=== PATIENT | female | born 2000 | race Caucasian/White ===

== ENCOUNTER 2023-07-11 21:49 | Outpatient (REF) | payer OTHER, SELFPAY ==
[2023-07-19 00:06] LABS: Age Gdln ACOG Testing Note (.); HPV Aptima Positive (Negative); IGP, rfx Aptima HPV ASCU Note (.)
== END 2023-07-11 21:50 | disposition home or self-care (01) ==
LOC: LAB 21:49
PROVIDERS: Visit Provider Obstetrics & Gynecology
DX: Z12.4 Encounter for screening for malignant neoplasm of cervix (principal)
CPT/HCPCS: G0145

== ENCOUNTER 2024-03-07 19:59 | Outpatient (REF) | payer OTHER, SELFPAY | END 2024-03-07 20:00 | disposition home or self-care (01) | LOC: LAB 19:59 | PROVIDERS: Visit Provider Obstetrics & Gynecology | DX: R87.610 Atypical squamous cells of undetermined significance on cytologic smear of cervix (ASC-US) (principal) | CPT/HCPCS: 88175 ==

== ENCOUNTER 2025-05-14 12:11 | Outpatient (REF) | payer OTHER, SELFPAY ==
--- OUTSIDE RECORDS SUMMARY | 2025-05-14 10:00 | XMS_ITS | Encounter Summary ---
Author Organization [facility] Address [address] [facility] [place] [address] Care Team Providers Care Stock Sorter Name Role Phone Christianne Quezada MD Primary Care Provider [phone] Reason for Visit * Reason Comments Well Women Visit Encounter Details Date Type Department Care Team ([facility] st Contact Info) Description 05/14/2025 10:00 AM EDT Office Visit [facility] [address] [place] [id number] Catrina Bettencourt PA [address] [facility] [place] [address] Well woman exam with routine gynecological exam; Anxiety, generalized ; control counseling; Yeast infection; Rash Social History Tobacco Use Types Packs/Day Years Used Date Smoking Tobacco: Never Alcohol Use Standard Drinks/Week Comments Never 0 (1 standard drink = 0.6 oz pur e alcohol) caffeine: tea Comments No Sex and Gender Information Value Date Recorded Sex Assigned at Not on file Legal Sex Female 6:51 PM EDT Gender Identity Female 12/22/2022 6:51 PM EDT Sexual Orientation Not on file documented as of this encounter Last Filed Vital Signs Vital Sign Reading Time Taken Comments Blood Pressure 114/74 05/14/2025 10:37 AM EDT Pulse - - Temperature - - Respiratory Rate - - Oxygen Saturation - - Inhaled Oxygen Concentration - - Weight 63.2 kg (139 lb 6.4 oz) 05/14/2025 10:37 AM EDT Height - - Body Mass Index 23.93 03/07/2024 3:09 PM EDT documented in this encounter Plan of Treatment Upcoming Encounters Date Type Department Care Team (Late st Contact Info) Description 05/19/2026 10:00 AM EDT Procedure Visit [facility] [address] [place] [phone] Catrina Bettencourt PA [address] [facility] [place] [address] Scheduled Orders Name Type Priority Associated Diagnoses Orde r Schedule Pap Smear Pathology and Cytology Routine Well woman exam with routine gynecological exam Ordered: 05/14/2025 documented as of this encounter Visit Diagnoses Diagnosis Well woman exam with routine gynecological exam Routine gynecological examination Anxiety, generalized control counseling Yeast infection Rash Rash and other nonspecific skin eruption documented in this encounter Care Teams Stock Sorter Relationship Specialty Start Date End Date Christianne Quezada MD [address] [place] [address] PCP - General Family Medicine 02/15/23 documented as of this encounter
--- OUTSIDE RECORDS SUMMARY | 2025-05-14 12:16 | XMS_ITS | Encounter Summary ---
Author Organization [facility] Address [address] [place] [address] Care Team Providers Care Nailing Machine Operator Automatic Name Role Phone Christianne Quezada MD Primary Care Provider [phone] Encounter Details Date Type Department Care Team (Latest Contact Info) Description 05/14/2025 Travel Social History Tobacco Use Types Packs/Day Years [...] on file documented as of this encounter Plan of Treatment Upcoming Encounters Date Type Department Care Team (Late st Contact Info) Description 05/19/2026 10:00 AM EDT Procedure Visit [facility] [address] [facility] [place] [id number] Catrina Bettencourt PA [address] [facility] [address] [place], [facility] documented as of this encounter Visit Diagnoses Not on filedocumented in this encounter Care Teams Nailing Machine Operator Automatic Relationship Specialty Start Date End Date Christianne Quezada MD [address] [place] [address] PCP - General Family Medicine 02/15/23 documented as of this encounter
--- OUTSIDE RECORDS SUMMARY | 2025-05-14 12:16 | XMS_ITS | Encounter Summary ---
Author Organization [facility] Address [address] [place] [address] Care Team Providers Care Garment Sewing Machine Operator Name Role Phone Christianne Quezada MD Primary Care Provider [phone] Encounter Details Date Type Department Care Team ([facility] Contact Info) Description 07/27/2023 Abstract [facility] [address] [place] [address] [place] [address] Raffi Kelly DO [address] [facility] [address] [place], [place] [address] Social History Tobacco Use Types Packs/Day Years [...] Encounters Date Type Department Care Team (Late Contact Info) Description 05/19/2026 10:00 AM EDT Procedure Visit [facility] [address] [facility] [place] [address] Catrina Bettencourt PA [address] [facility] [address] [place], [facility] documented as of this encounter Visit Diagnoses Not on filedocumented in this encounter Care Teams Garment Sewing Machine Operator Relationship Specialty Start Date End Date Christianne Quezada MD [address] [place] [address] PCP - General Family Medicine 02/15/23 documented as of this encounter
--- OUTSIDE RECORDS SUMMARY | 2025-05-14 12:16 | XMS_ITS | Encounter Summary ---
Author Organization [facility] Address [address] [facility] [place] [address] Care Team Providers Care Carpet Or Rug Layer Helper Name Role Phone Christianne Quezada MD Primary Care Provider [phone] Encounter Details Date Type Department Care Team ([facility] Contact Info) Description 03/15/2024 Abstract [facility] [place] [address] Jerri Newsome LPN [address] [place] [address] Social History Tobacco Use Types Packs/Day Years [...] EDT Procedure Visit [facility] [address] [facility] [place] [address] Catrina Bettencourt PA [address] [place], [facility] documented as of this encounter Visit Diagnoses Not on filedocumented in this encounter Care Teams Carpet Or Rug Layer Helper Relationship Specialty Start Date End Date Christianne Quezada MD [address] [place] [address] PCP - General Family Medicine 02/15/23 documented as of this encounter
--- OUTSIDE RECORDS SUMMARY | 2025-05-14 12:16 | XMS_ITS | Encounter Summary ---
Author Organization [facility] Address [address] [facility] [place] [address] Care Team Providers Care Production Statistical Clerk Name Role Phone Christianne Quezada MD Primary Care Provider [phone] Encounter Details Date Type Department Care Team ([facility] Contact Info) Description 05/14/2025 Bamboo flowsheet [facility] [address] [facility] [address] Catrina Bettencourt PA [address] [facility] [address] [place], [place] [address] Social History Tobacco Use Types Packs/Day Years [...] EDT Procedure Visit [facility] [address] [facility] [address] Catrina Bettencourt PA [address] [place] [address] [place] [id number] documented as of this encounter Visit Diagnoses Not on filedocumented in this encounter Care Teams Production Statistical Clerk Relationship Specialty Start Date End Date Christianne Quezada MD [address] [place] [address] PCP - General Family Medicine 02/15/23 documented as of this encounter
--- OUTSIDE RECORDS SUMMARY | 2025-05-14 12:16 | XMS_ITS | Encounter Summary ---
Author Organization [facility] Address [address] [facility] [place] [address] Care Team Providers Care Maintenance Person Name Role Phone Christianne Quezada MD Primary Care Provider [phone] Encounter Details Date Type Department Care Team (Late Contact Info) Description 03/15/2024 Orders Only [facility] [address] [facility] [place] [address] Jerri Newsome LPN [address] [facility] [address] [place], [place] [address] Social History Tobacco Use Types Packs/Day Years [...] EDT Procedure Visit [facility] [address] [facility] [place] [address] Catrina Bettencourt PA [address] [facility] [address] [place], [facility] documented as of this encounter Procedures Procedure Name Priority Date/Time Associated Diagnosis Comments PAP SMEAR Routine 03/07/2024 12:00 AM EDT documented in this encounter Results * Pap Smear (03/07/2024 12:00 AM EDT) Swab Cervical swab / Unknown Leticia Nurse [facility] CYTOLOGY ORDERABLES Final Result EXTERNAL LAB documented in this encounter Visit Diagnoses Not on filedocumented in this encounter Care Teams Maintenance Person Relationship Specialty Start Date End Date Christianne Quezada MD [address] [place] [address] PCP - General Family Medicine 02/15/23 documented as of this encounter
--- OUTSIDE RECORDS SUMMARY | 2025-05-14 12:16 | XMS_ITS | Clinical Summary ---
Author Organization [facility] Address [address] [place] [address] Care Team Providers Care Ekg/Ecg Technician Name Role Phone Christianne Quezada MD Primary Care Provider [phone] Allergies No known active allergies Medications citalopram (CeleXA) 20 MG tabletIndications :Anxiety, generalized Take 1 tablet (20 mg) by mouth Daily 30 tablet 11 05/14/20 25 Active norgestimate-ethi nyl estradiol (Sprintec 28) 0.25-35 MG-MCG tabletIndications : control counseling Take 1 tablet by mouth Daily 28 tablet 12 05/14/20 25 Active fluconazole (Diflucan) 150 MG tabletIndications :Yeast infection Take 1 tablet (150 mg) by mouth 1 (one) time for 1 dose This is a 1 time dose, take single tablet by mouth. 1 tablet 1 05/14/20 25 025 Active clobetasol (Temovate) 0.05 % creamIndications: Dermatitis Apply 1 application topically in the morning and 1 application before bedtime. Apply pea-size amount to affected area. 30 g 1 05/14/20 25 025 Active cephalexin (Keflex) 500 MG capsuleIndication s:Rash Take 1 capsule (500 mg) by mouth in the morning and 1 capsule (500 mg) before bedtime. Do all this for 3 days. 6 capsule 05/14/20 25 025 Active etonogestrel-elut ing 68 mg contraceptive implant 1 each by Implant route 1 (one) time. 06/29/20 22 025 Discontin ued(Other ) citalopram (CeleXA) 20 MG tabletIndications :Anxiety, generalized Take 1 tablet (20 mg) by mouth Daily 30 tablet 2 04/09/20 25 025 Discontin ued(Reord er) norgestimate-ethi nyl estradiol (Sprintec 28) 0.25-35 MG-MCG tabletIndications : control counseling Take 1 tablet by mouth Daily 28 tablet 3 04/09/20 25 025 Discontin ued(Reord er) Encounters Date Type Department Care Team Description 05/14/2025 10:00 AM EDT Office Visit [facility] [address] [facility] [place] [address] Catrina Bettencourt PA Well woman exam with routine gynecological exam; Anxiety, generalized ; control counseling; Yeast infection; Rash 05/14/2025 Bamboo flowsheet [facility] [address] [facility] [place] [address] Catrina Bettencourt PA 05/14/2025 Travel 04/09/2025 Refill [facility] [address] [facility] [address] Jerri Newsome LPN Anxiety, generalized ; control counseling 04/01/2025 Refill [facility] [address] [facility] [address] Raffi Kelly DO control counseling 03/09/2025 Refill [facility] [address] [place] [address] Raffi Kelly DO Anxiety, generalized from Last 3 Months Family History Medical History Relation Name Comments Diabetes Other Heart disease Other Relation Name Status Comments Brother 1 brother Other Social History Tobacco Use Types Packs/Day Years Used Date Smoking Tobacco: Never Alcohol Use Standard Drinks/Week Comments Never 0 (1 standard drink = 0.6 oz pur e alcohol) caffeine: tea Comments No Sex and Gender Information Value Date Recorded Sex Assigned at Not on file Legal Sex Female 6:51 PM EDT Gender Identity Female 12/22/2022 6:51 PM EDT Sexual Orientation Not on file Last Filed Vital Signs Vital Sign Reading Time Taken Comments Blood Pressure 114/74 05/14/2025 10:37 AM EDT Pulse - - Temperature - - Respiratory Rate - - Oxygen Saturation - - Inhaled Oxygen Concentration - - Weight 63.2 kg (139 lb 6.4 oz) 05/14/2025 10:37 AM EDT Height 162.6 cm (5' 4 ) 03/07/2024 3:09 PM EDT Body Mass Index 23.93 03/07/2024 3:09 PM EDT Plan of Treatment Upcoming Encounters Date Type Department Care Team (Late st Contact Info) Description 05/19/2026 10:00 AM EDT Procedure Visit [facility] [address] [facility] [address] Catrina Bettencourt PA [address] [facility] [place] [address] Health Maintenance Due Date Last Done Comments Influenza Vaccine (#1) 2025 07/14/2023 Insurance [employer] Care Teams Ekg/Ecg Technician Relationship Specialty Start Date End Date Christianne Quezada MD [address] [place] [address] PCP - General Family Medicine 02/15/23
[2025-05-16 12:09] LABS: Age Gdln ACOG Testing Note (.); IGP, rfx Aptima HPV ASCU Note (.)
== END 2025-05-14 12:12 | disposition home or self-care (01) ==
LOC: LAB 12:11
PROVIDERS: Visit Provider Physician Assistant
DX: Z01.419 Encounter for gynecological examination (general) (routine) without abnormal findings (principal)
CPT/HCPCS: 88175